=== PATIENT | female | born 1970 | race Caucasian/White ===

== ENCOUNTER 2018-12-10 21:48 | Emergency (ER) | payer BC, SELFPAY ==
[2018-12-10 21:59] VITALS: BP 156/91; PULSE 68; RESP 18; TEMP 36.6; O2SAT 98
--- NOTE | 2018-12-10 22:05 | DI.RAD.S_ITS ---
PROCEDURE: XR KNEE RT 3V INDICATIONS: fall TECHNIQUE: 3 views of the knee were acquired. COMPARISON: None. FINDINGS: Bones: No fractures or dislocations. No suspicious bony lesions. Spurring at the superior pole of the patella. Scattered degenerative subchondral sclerosis and spurring. Soft tissues: Mild joint effusion. No suspicious soft tissue calcifications. IMPRESSION: No acute fracture identified. Mild joint effusion. If the patient's pain or other symptoms persist, consider further evaluation with MRI Dictated by: Octaviano Echavarria M.D. on 12/11/2018 at 8:03 Approved by: Octaviano Echavarria M.D. on 12/11/2018 at 8:05
--- NOTE | 2018-12-10 22:06 | DI.RAD.S_ITS ---
PROCEDURE: XR ANKLE RT MIN 3V INDICATIONS: fall/injury TECHNIQUE: 3 views of the ankle were acquired. COMPARISON: None. FINDINGS: Bones: No fractures or dislocations. Ankle mortise is normally aligned. No suspicious bony lesions. Plantar and posterior calcaneal enthesophytes. Mild tibiotalar degenerative spurring. Tiny 1 mm subchondral lucency projecting in the lateral talar dome, which is almost certainly chronic. Multiple os peritoneum Soft tissues: No tibiotalar joint effusion. Achilles tendon appears normal. IMPRESSION: No acute fracture. Chronic degenerative changes as above. Dictated by: Octaviano Echavarria M.D. on 12/11/2018 at 7:37 Approved by: Octaviano Echavarria M.D. on 12/11/2018 at 7:39
--- NOTE | 2018-12-10 23:34 | ED.LOWEXIN ---
HPI - Extremity Injury (Lower) General Chief Complaint: Extremity Injury, Lower Stated Complaint: RT LEG PAIN S/P FALL Time Seen by Provider: 12/10/18 23:24 Source: patient Mode of arrival: ambulatory Limitations: no limitations History of Present Illness HPI Narrative: Patient is a 48-year-old female here for evaluation of a right leg injury. Patient states that she was on a wheel watching to her when she was going down a flight of stairs. She states that after she took her 1st step down she decided she wanted to turn around and come back up. States that her foot slipped off the stairs and she slid down while her right foot was bent up under her. She did not hit her head. There is no other injuries from the event. Has been ambulatory since then but has pain from her knee to her ankle. Has a small abrasion on the inside of her right ankle. Related Data Allergies Allergy/AdvReac Type Severity Reaction Status Date / Time Penicillins Allergy Verified 12/10/18 21:59 Review of Systems Constitutional Denies fever(s) Cardiovascular Denies chest pain and Denies dyspnea Respiratory Denies dyspnea Musculoskeletal Comments: Right lower extremity pain Integumentary/Breasts Comments: Abrasion to the inside of the right ankle Neurologic Comments: Some tingling to the right foot Hematologic/Lymphatic Denies easy bleeding and Denies easy bruising [facility] Medical History Patient denies medical problems (Acute) Social History Smoking Status: Never smoker Social History Smoking Status: Never smoker Exam Initial Vital Signs Initial Vital Signs: Vital Signs Temperature 97.8 F 12/10/18 21:59 Pulse Rate 68 12/10/18 21:59 Respiratory Rate 18 12/10/18 21:59 Blood Pressure 156/91 H 12/10/18 21:59 Pulse Oximetry 98 12/10/18 21:59 Resp Effort & Inspection: normal respiratory effort Cardio Pulses: dorsalis pedis present on the right Skin Other: Small 1 cm x 1 cm superficial abrasion to the medial malleolus of the right ankle. Neuro Sensory Exam: no sensory deficits noted Extrem Other: Patient with tenderness to palpation just distal to the right knee to the ankle. She can bend her right knee however it is painful. She can flex and extend her right ankle however is painful. Right foot unremarkable Psych Appearance: grossly normal and well kempt Course Orders Ordered: ED Orders 12/10/18 22:05 XR knee RT 3V Stat 12/10/18 22:06 XR ankle RT min 3V Stat Vital Signs - 8 hr 12/10/18 21:59 12/10/18 23:44 Temperature 97.8 F Pulse Rate 68 75 Respiratory Rate 18 12 Blood Pressure 156/91 H Pulse Oximetry 98 MDM - Extremity Injury (Lower) Imaging Data Knee x-ray: Attestation: I personally reviewed and interpreted this imaging study as follows: My impression: No fractures, no dislocations Ankle x-ray: Attestation: I personally reviewed and interpreted this imaging study as follows: My impression: No fractures, no dislocations MDM Narrative Medical decision making narrative: Neurovascularly intact, no fractures noted on the x-ray. The abrasion on her right ankle needs no intervention here in the emergency department. We discussed care instructions with regard to this. She was given crutches for comfort. She is given return precautions and follow-up instructions. She expressed understanding and agreement with plan. Discharge Plan Departure Patient Disposition: Home Clinical Impression: Abrasion of skin Injury of leg, right Qualifiers: Encounter type: initial encounter Qualified Code(s): S89.91XA - Unspecified injury of right lower leg, initial encounter Discharge Date/Time: 12/11/18 00:04 Interventions: ED Discharge Assessment Last Done: 12/10/18 23:44 Instructions: How To Perform RICE (Rest, Ice, Compress, Elevate) Activity Restrictions/Additional Instructions: There were no fractures on the x-rays. Just keep the skin abrasion clean with soap and water. If you develop new symptoms or worsening symptoms please return to the emergency department for further evaluation. You can take Tylenol/ibuprofen for any discomfort.
[2018-12-10 23:44] VITALS: PULSE 75; RESP 12
== END 2018-12-11 00:04 | disposition home or self-care (01) ==
PROVIDERS: Emergency Provider Emergency Medicine
DX: S90.511A Abrasion, right ankle, initial encounter (principal); S89.91XA Unspecified injury of right lower leg, initial encounter; W10.8XXA Fall (on) (from) other stairs and steps, initial encounter
CPT/HCPCS: 73562; 73610; 99282; 99283